=== PATIENT | female | born 1960 | race Caucasian/White ===

== ENCOUNTER → 2017-12-01 | Outpatient (CLI) | payer OTHER ==
[~2017-12-01] MED LIST: ADV100/50 INH; ADV230RPT INH; AMOX-557 PO; AZIT-17 PO; BECL8.7A2 IH; BUDE0.5A6 IH; CEP500 PO; CETI1TAB75 PO; DICL100G39 TOP; FLU60SYR30 IM ONLY; LEVO75TA73 PO; LOSA-51 PO; MONT10TA PO; OXYC20TA86 PO; PER PO; ZOST19404 IM; ZOST19404 SQ
[2017-12-01 10:32] LABS: PLATELET COUNT, AUTOMATED 219 K/uL (150-450)
== END ==
LOC: LAB 10:07
PROVIDERS: ATTEND Nurse Practitioner Family
DX: D72.1 Eosinophilia (principal)
CPT/HCPCS: 36415; 85025

== ENCOUNTER → 2018-03-02 | Outpatient (CLI) | payer OTHER ==
[~2018-03-02] MED LIST changes: +HYDR12.561 PO; +MEPO100V SC; +OXYGENHOME INH; +PRED20TA6 PO; +VARI50KI IM
[2018-03-02 11:10] LABS: PLATELET COUNT, AUTOMATED 202 K/uL (150-450)
== END ==
LOC: LAB 10:34
PROVIDERS: ATTEND Nurse Practitioner Family
DX: R60.9 Edema, unspecified (principal)
CPT/HCPCS: 36415; 82040; 82247; 82310; 82374; 82435; 82565; 82947; 83036; 83880; 84075; 84132; 84155; 84295; 84450; 84460; 84520; 85025

== ENCOUNTER → 2018-03-03 | Outpatient (REF) | payer OTHER | LOC: ZZSENDIN 15:48 | PROVIDERS: ATTEND Nurse Practitioner Family | DX: E03.9 Hypothyroidism, unspecified (principal) | CPT/HCPCS: 84443 ==

== ENCOUNTER → 2018-05-05 | Outpatient (CLI) | payer OTHER | LOC: LAB 16:31 | PROVIDERS: ATTEND Nurse Practitioner Family | DX: Z79.899 Other long term (current) drug therapy (principal) | CPT/HCPCS: 36415; 86480 ==